=== PATIENT | female | born 1990 | race Caucasian/White ===

== ENCOUNTER 2018-01-29 08:47 | Outpatient (CLI) | payer OTHER ==
--- NOTE | 2018-01-29 09:37 | RAD ---
TWO VIEWS LEFT TIBIA AND FIBULA: History: Left leg pain and edema. FINDINGS: Two views of the left leg shows a remote healed fracture of the mid portion of the fibula. No acute f racture or dislocation are seen. Mild diffuse soft tissue swelling is seen. IMPRESSION: No evidence of acute osseous abnormality. POS: [facility] [place]
== END 2018-01-29 08:48 | disposition home or self-care (01) ==
LOC: RAD-FRANK 08:47
PROVIDERS: ATTEND Nurse Practitioner Family
DX: M79.605 Pain in left leg (principal)

== ENCOUNTER 2022-10-25 09:43 | Outpatient (CLI) | payer OTHER | END 2022-10-25 09:44 | disposition home or self-care (01) | LOC: RAD-FRANK 09:43 | PROVIDERS: ATTEND Nurse Practitioner Family | DX: M25.561 Pain in right knee (principal) ==